=== PATIENT | male | born 1960 | race Two or more races ===

== ENCOUNTER 2023-10-05 18:16 | Emergency (ER) | payer BC ==
[~2023-10-05] VITALS: Ht 165.1 cm; Wt 90.9 kg
[~2023-10-05 18:16] MED LIST: ACET-3209 PO; ALBU8.5H17 INH; FLUT1DIS INH; LOSA-416 PO
[2023-10-05 18:42] VITALS: BP 152/89; PULSE 94; TEMP 98.3; O2SAT 96
[2023-10-05 21:32] VITALS: RESP 16
[2023-10-05] MEDS: ketorolac trometh. 30mg/ml inj. IM ONE (21:32)
[2023-10-05] MEDS ORDERED: HYDR-3973 PO (22:00)
[2023-10-05] MEDS ORDERED: AMOX-580 PO (22:00)
== END 2023-10-05 22:08 | disposition home or self-care (01) ==
LOC: ER 18:16
DX: S61.452A Open bite of left hand, initial encounter (principal); Z88.0 Allergy status to penicillin; Z88.1 Allergy status to other antibiotic agents; Z79.899 Other long term (current) drug therapy; W55.01XA Bitten by cat, initial encounter; Y93.89 Activity, other specified; Y92.89 Other specified places as the place of occurrence of the external cause; Y99.8 Other external cause status
CPT/HCPCS: 73130; 96372; 99283; J1885; A6258; A6449